=== PATIENT | female | born 1960 | race Caucasian/White ===

== ENCOUNTER → 2016-04-08 | Outpatient (CLI) | payer OTHER | LOC: LAB 07:31 | DX: Z00.00 Encounter for general adult medical examination without abnormal findings (principal); E03.9 Hypothyroidism, unspecified ==

== ENCOUNTER → 2016-07-01 | Outpatient (CLI) | payer OTHER | LOC: LAB 06:45 | DX: E03.4 Atrophy of thyroid (acquired) (principal) ==

== ENCOUNTER → 2016-08-26 | Outpatient (CLI) | payer OTHER | LOC: LAB 08:51 | DX: R11.0 Nausea (principal); E03.9 Hypothyroidism, unspecified ==

== ENCOUNTER → 2023-10-23 | Outpatient (CLI) | payer BC | LOC: RAD 11:23 | DX: Z48.24 Encounter for aftercare following lung transplant (principal) ==